=== PATIENT | female | born 1975 | race Caucasian/White ===

== ENCOUNTER 2017-06-27 10:09 | Emergency (ER) | payer OTHER ==
[~2017-06-27] VITALS: Ht 172.7 cm; Wt 81.7 kg
[~2017-06-27 10:09] MED LIST: ACID REDUCER200 MG; APRI1 EACH; FLEXERIL PO; LEVAQUIN 500 M500 M2 PO; LEVAQUIN 500 M500 MG PO; MEDROLDOSEPACK PO; NORCO 5-325 TA1 EACH PO; TRAMADOL 50 MG50 MG PO; TRILIPIX45 MG PO; ULTRAM 50MG TAB50 MG PO; ZENCHENT1 EACH; ZENCHENT1 EACH PO
[2017-06-27] MEDS ORDERED: TRILIPIX45 MG PO (10:23)
[2017-06-27] MEDS ORDERED: ALLEGRA ALLERG180 MG PO (10:23)
[2017-06-27] MEDS ORDERED: VITAMIN D3400 UNIT PO (10:23)
[2017-06-27] MEDS ORDERED: ASPIR 8181 MG PO (10:24)
[2017-06-27] MEDS ORDERED: HYDROCODON-ACE1 EAC7 PO (11:42)
[2017-06-27 11:51] VITALS: BP 144/102
== END 2017-06-27 11:52 | disposition home or self-care (01) ==
LOC: M.ERS 10:09
DX: J02.9 Acute pharyngitis, unspecified (principal); F10.99 Alcohol use, unspecified with unspecified alcohol-induced disorder